=== PATIENT | male | born 1960 | race Caucasian/White ===

== ENCOUNTER → 2016-09-05 | Outpatient (CLI) | payer OTHER, BC ==
[~2016-09-05] MED LIST: ALBINS/ INH; ALBU18002 INH; ALBU1NEB10 INH; ALBUAER19 INH; MOME100A INH; MOME200A INH; MOME6000 NAE; MONT1TAB3 PO; PRED-301 PO; TIOT1SPR INH
--- NOTE | 2016-09-05 13:48 | DIAGNOSTIC IMAGING REPORT ---
CHEST 2 VIEWS ROUTINE CLINICAL HISTORY: R63.4 Weight loss dyspnea COMPARISON STUDY: 02/15/2016 FINDINGS: Mild stable cardiomegaly. Chronic pleural plaques left lung base. No new or interval finding. No acute process. IMPRESSION: Chronic change. No acute process. Electronically signed by: Shane Gupta M.D. 09/05/2016 1:47 PM Dictated Date/Time: 09/05/2016 1:47 PM
[2016-09-05 14:09] LABS: BASO % 0.4 %; BASO ABS # 0.03 K/uL (0-0.2); COMPLETE YES; EOS % 3.3 %; HEMATOCRIT 44.9 % (42-52); IG% 0.2 %; LYMPH % 18.9 %; MEAN CELL VOLUME 94.7 fL (80-100); MEAN CORPUSCULAR HEMOGLOBIN 31.2 pg (25-34); MEAN PLATELET VOLUME 10.2 fL (7.4-10.4); MONO % 6.6 %; NEUT % 70.6 %; PLATELET COUNT 183 K/uL (130-400); RED BLOOD COUNT 4.74 M/uL (4.7-6.1); WHITE BLOOD COUNT 8.46 K/uL (4.8-10.8)
[2016-09-05 14:27] LABS: ALT/SGPT 56 U/L (12-78); AST/SGOT 25 U/L (15-37); BLOOD UREA NITROGEN 15 mg/dl (7-18); BUN/CREATININE RATIO 14.7 (10-20); CALCIUM 9.2 mg/dl (8.5-10.1); CARBON DIOXIDE 30 mmol/L (21-32); CHLORIDE 106 mmol/L (98-107); GLUCOSE 112 mg/dl (70-99); POTASSIUM 3.6 mmol/L (3.5-5.1); SODIUM 142 mmol/L (136-145)
[2016-09-05 14:38] LABS: ALB/GLOB RATIO 0.9 (0.9-2); ALKALINE PHOSPHATASE 69 U/L (45-117)
== END | disposition home or self-care (01) ==
LOC: C.RAD 12:44
PROVIDERS: ATTEND Physician Assistant
DX: R63.4 Abnormal weight loss (principal); R06.00 Dyspnea, unspecified

== ENCOUNTER → 2017-02-10 | Day surgery (SDC) | payer OTHER, BC ==
[~2017-02-10] VITALS: Ht 193 cm; Wt 115.5 kg
[~2017-02-10] MED LIST changes: -ALBU1NEB10 INH; -ALBUAER19 INH; +LIDOCAINE HCL 2% 2 ML VIAL (20MG/ML) ONE; +MIDAZOLAM HCL 1 MG/ML 2ML VIAL ONE; -MOME100A INH; +PROPOFOL IV EMULSION 10 MG/ML 20 ML VIAL IV ONE
[2017-02-10 14:53] VITALS: Ht 193 cm; Wt 115.5 kg
--- NOTE | 2017-02-10 14:54 | Endo History and Physical ---
History & Physical Date of Service: Feb 10, 2017. Chief Complaint: Screening Referring Physician: Megan Arroyo History of Present Illness 56 yo CM who presents for screening colonoscopy. Past Surgical History Hx Cardiac Surgery: No Hx Internal Defibrillator: No Hx Pacemaker: No Hx Abdominal Surgery: No Hx of Implantable Prosthesis: No Hx Post-Op Nausea and Vomiting: No Hx Cancer Surgery: No Hx Thoracic Surgery: Yes (BRONCHOSCOPY) Hx Orthopedic: Yes (LOW BACK SURGERY) Hx Urinary Tract Surgery: Yes (VASECTOMY) Family History None Social History Smoking Status: Never Smoker Hx Substance Use: No Hx Alcohol Use: No Allergies Coded Allergies: Azithromycin (Verified Allergy, Intermediate, DIARRHEA, 02/10/17) Ibuprofen (Verified Allergy, Intermediate, SHORT OF BREATHE, 02/10/17) Current Medications Reported Home Medications Medications Dose Route/Sig Max Daily Dose Days Date Category Dose Instructions Unable (Miscellaneous Information) . 08/19/09 Reported Zithromax (Z-Horace) (Azithromycin) Pkt 0 PO UD 08/19/09 Reported 2 TABS DAY 1, THEN 1 TAB DAILY FOR 4 DAYS Mometasone Furoate (Mometasone Furoate (Nasal)) 50 Mcg/Act Spr 1 [place] VIRI QAM 01/27/17 Reported Prednisone 5 Mg Tab 5 Mg PO QAM 01/27/17 Reported Proair Respiclick (Albuterol Sulfate) 108 Mcg/Act Aer 2 Puffs INH Q4H PRN 01/27/17 Reported Spiriva Respimat (Tiotropium [place]) 2.5 Mcg/Act Spr 2 Puffs INH QAM 01/27/17 Reported Proventil 0.083% 2.5MG/3ML (Albuterol Sulf) 2.5 Mg/3 Ml Nebu 2.5 Mg INH QID PRN 01/27/17 Reported Dulera 200/5 Mcg (Mometasone Furoate-Formoterol) 1 Aer Aer 2 Puffs INH DAILY-BID 01/27/17 Reported Singulair (Montelukast Sodium) 10 Mg Tab 10 Mg PO QAM 08/25/12 Reported Vital Signs Weight (Kilograms): 115.45 Height (Feet): 6 Height (Inches): 4 Physical Exam General Appearance: WD/WN, no apparent distress Respiratory/Chest: Auscultation: breath sounds normal Cardiovascular: Heart Auscultation: RRR Abdomen: Bowel Sounds: normal Inspection & Palpation: soft, non-distended, no tenderness, guarding & rebound Assessment and Plan Assessment: 56 yo CM who presents for screening colonoscopy. Plan: Proceed with colonoscopy.
--- NOTE | 2017-02-10 15:58 | Discharge Instructions ---
Endoscopy Patient Instructions Date / Procedure(s) Performed Feb 10, 2017. Colonoscopy Allergy Information Coded Allergies: Azithromycin (Verified Allergy, Intermediate, DIARRHEA, 02/10/17) Ibuprofen (Verified Allergy, Intermediate, SHORT OF BREATHE, 02/10/17) Discharge Date / Findings Feb 10, 2017. Colon polyps Diverticulosis Internal hemorrhoids Medication Instructions OK to resume all medications today as prescribed Reported Home Medications Medications Dose Route/Sig Max Daily Dose Days Date Category Dose Instructions Unable (Miscellaneous Information) . 08/19/09 Reported Zithromax (Z-Horace) (Azithromycin) Pkt 0 PO UD 08/19/09 Reported 2 TABS DAY 1, THEN 1 TAB DAILY FOR 4 DAYS Mometasone Furoate (Mometasone Furoate (Nasal)) 50 Mcg/Act Spr 1 [place] IVRI QAM 01/27/17 Reported Prednisone 5 Mg Tab 5 Mg PO QAM 01/27/17 Reported Proair Respiclick (Albuterol Sulfate) 108 Mcg/Act Aer 2 Puffs INH Q4H PRN 01/27/17 Reported Spiriva Respimat (Tiotropium [place]) 2.5 Mcg/Act Spr 2 Puffs INH QAM 01/27/17 Reported Proventil 0.083% 2.5MG/3ML (Albuterol Sulf) 2.5 Mg/3 Ml Nebu 2.5 Mg INH QID PRN 01/27/17 Reported Dulera 200/5 Mcg (Mometasone Furoate-Formoterol) 1 Aer Aer 2 Puffs INH DAILY-BID 01/27/17 Reported Singulair (Montelukast Sodium) 10 Mg Tab 10 Mg PO QAM 08/25/12 Reported Provider Instructions Activity Restrictions - No exercising or heavy lifting for 24 hours. - Do not drink alcohol the day of the procedure. - Do not drive a car or operate machinery until the day after the procedure. - Do not make any important decisions or sign important papers in 24 hours after the procedure. Following Day: - Return to full activity which may include returning to work/school. Diet Start your diet with liquids and light foods (jello, soup, juice, toast). Then eat your usual diet if not nauseated. Treatment For Common After Affects For mild abdominal pain, bloating, or excessive gas: - Rest - Eat lightly - Lie on right side Follow-Up Information Follow-up with DR. NORWOOD as scheduled Anesthesia Information What You Should Know You have had a procedure that required some medicine to reduce anxiety and discomfort. This treatment is called moderate sedation. After receiving the treatment, you may be sleepy, but you will be able to breathe on your own. The effects of the treatment may last for several hours. Follow these instructions along with Activity/Diet recommendations noted above: * Do NOT do anything where dizziness or clumsiness would be dangerous. * Rest quietly at home today, then you can be up and about tomorrow. * Have a responsible person stay with you the rest of today. * You may have had an I.V. today. If so, you may take the dressing off later today. Recommendations Call your doctor if: * Trouble breathing * Continuous vomiting for more than 24 hours * Temperature above 101 degrees * Severe abdominal pain or bloating * Pain not relieved by pain medicine ordered * There is increased drainage or redness from any incision * A large amount of rectal bleeding greater than 2-3 tablespoons. (If you had a polyp/s removed or have hemorrhoids, a small amount of blood - from the rectum is to be expected.) * You have any unanswered questions or concerns. IN THE EVENT OF A SERIOUS EMERGENCY, GO TO THE NEAREST EMERGENCY ROOM Your discharge instructions were prepared by provider Zenon Lopez. Patient Instructions Signature Page Beto Murphy Patient (or Guardian) Signature/Date: I have read and understand the instructions given to me by my caregivers. Caregiver/RN/Doctor Signature/Date: The above-named patient and/or guardian has received patient instructions on this date. + Original Patient Signature Page (only) stays with chart. Please make copy for patient.
--- NOTE | 2017-02-10 16:23 | Anesthesiology Progress Note ---
Anesthesia Post Op Note Date & Time Feb 10, 2017 at 16:23 Vital Signs Pain Intensity: 0 Vital Signs Past 12 Hours Date Time Temp Pulse Resp B/P (MAP) Pulse Ox O2 Delivery O2 Flow Rate FiO2 02/10/17 16:14 69 18 122/92 (102) 98 Room Air 02/10/17 15:59 70 18 103/70 (81) 98 Room Air 02/10/17 14:58 36.4 64 18 131/62 (85) 96 Room Air Notes Mental Status: alert / awake / arousable, participated in evaluation Pt Amnestic to Procedure: Yes Nausea / Vomiting: adequately controlled Pain: adequately controlled Airway Patency, RR, SpO2: stable & adequate BP & HR: stable & adequate Hydration State: stable & adequate Anesthetic Complications: no major complications apparent
[2017-02-10 16:29] VITALS: BP 118/69; PULSE 69; O2SAT 98
--- NOTE | 2017-02-10 20:25 | GI REPORT ---
Procedure Date: 02/10/2017 3:17 PM Procedure: Colonoscopy Indications: Screening for colorectal malignant neoplasm Medicines: Monitored Anesthesia Care Complications: No immediate complications. Estimated Blood Loss: Estimated blood loss: none. Procedure: Pre-Anesthesia Assessment: - Prior to the procedure, a History and Physical was performed, and patient medications and allergies were reviewed. The patient's tolerance of previous anesthesia was also reviewed. The risks and benefits of the procedure and the sedation options and risks were discussed with the patient. All questions were answered, and informed consent was obtained. Prior Anticoagulants: The patient has taken no previous anticoagulant or antiplatelet agents. ASA Grade Assessment: III - A patient with severe systemic disease. After reviewing the risks and benefits, the patient was deemed in satisfactory condition to undergo the procedure. After I obtained informed consent, the scope was passed under direct vision. Throughout the procedure, the patient's blood pressure, pulse, and oxygen saturations were monitored continuously. The scope was introduced through the anus and advanced to the cecum, identified by appendiceal orifice and ileocecal valve. The colonoscopy was performed without difficulty. The patient tolerated the procedure well. The quality of the bowel preparation was good. The ileocecal valve, appendiceal orifice, and rectum were photographed. Findings: Two sessile polyps were found in the transverse colon. The polyps were 5 to 7 mm in size. These polyps were removed with a hot snare. Resection and retrieval were complete. Multiple small-mouthed diverticula were found in the sigmoid colon. Non-bleeding internal hemorrhoids were found during retroflexion. The hemorrhoids were small. Impression: - Two 5 to 7 mm polyps in the transverse colon, removed with a hot snare. Resected and retrieved. - Diverticulosis in the sigmoid colon. - Non-bleeding internal hemorrhoids. Recommendation: - Resume previous diet. - Continue present medications. - Repeat colonoscopy for surveillance based on pathology results. - Return to primary care physician as previously scheduled. Zenno Lopez, DO 02/10/2017 3:57:11 PM This report has been signed electronically. Note Initiated On: 02/10/2017 3:17 PM I attest to the content of the Intraoperative Record and orders documented therein, exceptions below
== END | disposition home or self-care (01) ==
LOC: C.GI 13:35
PROVIDERS: ATTEND Internal Medicine
DX: Z12.11 Encounter for screening for malignant neoplasm of colon (principal); D12.3 Benign neoplasm of transverse colon; K57.30 Diverticulosis of large intestine without perforation or abscess without bleeding; K64.8 Other hemorrhoids; J44.9 Chronic obstructive pulmonary disease, unspecified; M19.90 Unspecified osteoarthritis, unspecified site; F17.220 Nicotine dependence, chewing tobacco, uncomplicated; Z98.52 Vasectomy status; Z88.1 Allergy status to other antibiotic agents

== ENCOUNTER → 2017-05-19 | Outpatient (CLI) | payer OTHER, BC ==
[~2017-05-19] MED LIST changes: -LIDOCAINE HCL 2% 2 ML VIAL (20MG/ML) ONE; -MIDAZOLAM HCL 1 MG/ML 2ML VIAL ONE; -PROPOFOL IV EMULSION 10 MG/ML 20 ML VIAL IV ONE
[2017-05-19 13:21] LABS: BASO % 0.5 %; BASO ABS # 0.04 K/uL (0-0.2); EOS % 5.7 %; EOS ABS # 0.44 K/uL (0-0.5); HEMATOCRIT 45.5 % (42-52); HEMOGLOBIN 15.3 g/dL (14.0-18.0); IG# 0.02 K/uL (0.00-0.02); LYMPH % 27.2 %; LYMPH ABS # 2.12 K/uL (1.2-3.4); MEAN CELL VOLUME 93.8 fL (80-100); MEAN CORPUSCULAR HEMOGLOBIN 31.5 pg (25-34); MEAN CORPUSCULAR HGB CONC 33.6 g/dl (32-36); MEAN PLATELET VOLUME 10.7 fL (7.4-10.4); MONO % 8.6 %; MONO ABS # 0.67 K/uL (0.11-0.59); NEUT % 57.7 %; NEUT ABS # 4.49 K/uL (1.4-6.5); PLATELET COUNT 188 K/uL (130-400); RED CELL DISTRIBUTION WIDTH CV 12.7 % (11.5-14.5); RED CELL DISTRIBUTION WIDTH SD 43.4 fL (36.4-46.3); WHITE BLOOD COUNT 7.78 K/uL (4.8-10.8)
[2017-05-19 13:43] LABS: ALBUMIN 3.5 gm/dl (3.4-5.0); ALT/SGPT 52 U/L (12-78); BLOOD UREA NITROGEN 13 mg/dl (7-18); CALCIUM 9.5 mg/dl (8.5-10.1); CARBON DIOXIDE 28 mmol/L (21-32); CREATININE 0.87 mg/dl (0.60-1.40); GLUCOSE 93 mg/dl (70-99); POTASSIUM 4.3 mmol/L (3.5-5.1); SODIUM 138 mmol/L (136-145)
[2017-05-19 14:10] LABS: ALKALINE PHOSPHATASE 65 U/L (45-117); AST/SGOT 27 U/L (15-37); TOTAL PROTEIN 7.5 gm/dl (6.4-8.2)
== END | disposition home or self-care (01) ==
LOC: C.LABBFT 06:58
PROVIDERS: ATTEND Nurse Practitioner
DX: R05 Cough (principal); R64 Cachexia; Z12.5 Encounter for screening for malignant neoplasm of prostate

== ENCOUNTER → 2017-05-27 | Outpatient (CLI) | payer OTHER, BC ==
[~2017-05-27] MED LIST changes: +OPTIRAY 320 IV PRN
--- NOTE | 2017-05-27 08:33 | DIAGNOSTIC IMAGING REPORT ---
CT OF THE CHEST WITH IV CONTRAST CLINICAL HISTORY: J44.9 Chronic obstructive pulmonary [id number] cough PRIOR ABNORMAL CHEST CT. COMPARISON STUDY: 02/27/2015 TECHNIQUE: Following the IV administration of 93 mL of Optiray-320, CT of the thorax was performed from the thoracic inlet to the lung bases. Images are reviewed in the axial, sagittal, and coronal planes. IV contrast was administered without complication. A dose lowering technique was utilized adhering to the principles of ALARA. CT DOSE: 825.23 mGy.cm FINDINGS: Thyroid: There are several tiny right lobe thyroid nodules, none of which exceed 4 mm in diameter. Thoracic aorta: The thoracic aorta is normal in course and caliber, noting standard 3-vessel arch anatomy. No aneurysm or dissection is seen. Pulmonary vasculature: The pulmonary trunk is normal in caliber. There are no central filling defects identified to suggest pulmonary embolus. Note that this examination was not protocoled for the evaluation of pulmonary emboli. HEART: There are minimal coronary artery calcifications. The heart is the upper limits of normal in size. Lungs and pleural spaces: There are left-sided pleural calcifications. No pleural effusions are visualized. There are linear opacities within the left lower lobe most consistent with atelectasis/scarring. There is no focal pulmonary consolidation. There is a 4 mm right upper lobe perifissural nodule, unchanged from the preceding study. No new or enlarging pulmonary nodules are visualized. Mediastinum: There is no mediastinal lymphadenopathy. Jennifer: There is no evidence of pathologic hilar adenopathy Axilla: Clear. Upper abdomen: There is mild hepatic steatosis. There is an upper pole left renal cyst. Skeletal structures: There are no lytic or blastic osseous lesions. IMPRESSION: 1. No acute intrathoracic findings 2. Stable left pleural calcifications 3. Stable left lower lobe atelectasis/scarring 4. Stable 4 mm perifissural right upper lobe pulmonary nodule Electronically signed by: Luc Aparicio M.D. 05/27/2017 8:32 AM Dictated Date/Time: 05/27/2017 8:25 AM
== END | disposition home or self-care (01) ==
LOC: C.CTS 08:04
PROVIDERS: ATTEND Nurse Practitioner
DX: J61 Pneumoconiosis due to asbestos and other mineral fibers (principal); J44.9 Chronic obstructive pulmonary disease, unspecified; R05 Cough

== ENCOUNTER → 2017-06-22 | Outpatient (CLI) | payer OTHER, BC ==
[~2017-06-22] MED LIST changes: +GADAVIST IV PRN; -OPTIRAY 320 IV PRN
--- NOTE | 2017-06-22 18:17 | DIAGNOSTIC IMAGING REPORT ---
THORACIC SPINE COMBO CLINICAL HISTORY: 57 years-old Male presenting with PAIN IN THORACIC SPINE, SPONDILOSIS. TECHNIQUE: Multisequence, multiplanar MR imaging of the thoracic spine was performed before and after the administration of intravenous contrast. IV contrast: 11 mL of Gadavist. COMPARISON: CT chest from 05/27/2017. FINDINGS: Localizer images: Unremarkable. Normal thoracic kyphosis. Slight dextrocurvature of the thoracic spine. Fat-containing T1 hyperintense lesions in several vertebral bodies consistent with benign hemangiomas. A T1 hyperintense, mildly T2 hyperintense, mildly enhancing lesion in the T4 vertebral body may represent a fat poor hemangioma. Vertebral bodies maintain normal height and alignment. Mild intervertebral disc desiccation noted at T6-7. Small disc osteophyte complex at T8-9 with minimal effacement of the anterior thecal sac. No significant neural foraminal narrowing. The thoracic spinal cord is normal in morphology and signal intensity. Paraspinal soft tissues within normal limits. No abnormal enhancement. IMPRESSION: 1. Dextroscoliotic curvature with mild degenerative change. No significant spinal canal or neural foraminal narrowing. 2. In the setting of an absence of a history of malignancy, the slightly indeterminate lesion at T4 most likely represents a fat poor hemangioma. Electronically signed by: Santiago Aleman M.D. 06/22/2017 6:16 PM Dictated Date/Time: 06/22/2017 6:09 PM
== END | disposition home or self-care (01) ==
LOC: C.MRI 17:09
PROVIDERS: ATTEND Nurse Practitioner
DX: M47.814 Spondylosis without myelopathy or radiculopathy, thoracic region (principal); M54.6 Pain in thoracic spine

== ENCOUNTER → 2017-07-06 | Outpatient (CLI) | payer OTHER, BC ==
[~2017-07-06] MED LIST changes: -GADAVIST IV PRN
--- NOTE | 2017-07-06 10:47 | DIAGNOSTIC IMAGING REPORT ---
CHEST 2 VIEWS ROUTINE CLINICAL HISTORY: 57 years-old Male presenting with subcentimeter right upper lobe nodule, calcified left pleural plaque, preoperative assessment. TECHNIQUE: PA and lateral views of the chest were obtained. COMPARISON: 09/05/2016. FINDINGS: Atherosclerosis of the aortic arch. Cardiac silhouette normal in size. Lungs and pleural spaces clear. Degenerative changes of the thoracic spine. Upper abdomen normal. IMPRESSION: 1. No acute cardiopulmonary disease. Electronically signed by: Santiago Aleman M.D. 07/06/2017 10:45 AM Dictated Date/Time: 07/06/2017 10:44 AM
[2017-07-06 12:19] LABS: HEMATOCRIT 43.5 % (42-52); HEMOGLOBIN 14.9 g/dL (14.0-18.0); MEAN CELL VOLUME 91.2 fL (80-100); MEAN CORPUSCULAR HEMOGLOBIN 31.2 pg (25-34); MEAN CORPUSCULAR HGB CONC 34.3 g/dl (32-36); PLATELET COUNT 185 K/uL (130-400); RED CELL DISTRIBUTION WIDTH CV 12.4 % (11.5-14.5); RED CELL DISTRIBUTION WIDTH SD 41.6 fL (36.4-46.3); WHITE BLOOD COUNT 7.75 K/uL (4.8-10.8)
[2017-07-06 12:31] LABS: PTT PATIENT 26.6 SECONDS (21.0-31.0)
== END | disposition home or self-care (01) ==
LOC: C.RAD 10:04
PROVIDERS: ATTEND Podiatrist Foot & Ankle Surgery
DX: Z01.818 Encounter for other preprocedural examination (principal); Z01.810 Encounter for preprocedural cardiovascular examination; Z01.812 Encounter for preprocedural laboratory examination

== ENCOUNTER → 2017-07-20 | Day surgery (SDC) | payer OTHER, BC ==
[2017-07-14 08:52] VITALS: Ht 193 cm; Wt 115.5 kg
[~2017-07-20] VITALS: Ht 193 cm; Wt 115.5 kg
[~2017-07-20] MED LIST changes: +ALBINS INH; +ATROPINE SULFATE 0.1 MG/ML 5ML SYR IV PRN; +BUPIVACAINE 0.5 % 5 MG/1 ML MPF 30ML VIAL ONE; +CRTC; +ELAS-1213 EXT; +EpHEDrine SULFATE INJ 50 MG/ML AMP IV PRN; +FENTANYL CITRATE INJ 50 MCG/1 ML 2 ML VIAL IV PRN; +FENTANYL CITRATE INJ 50 MCG/1 ML 2 ML VIAL ONE; +FLUMAZENIL 0.1 MG/1 ML 10 ML VIAL IV PRN; +HYDR-5688 PO; +HYDROmorphone INJ 2 MG/ML SYR/VIAL IV PRN; +LABETALOL HCL IV 5 MG/ML 20ML IV PRN; +LACTATED RINGER'S 1000ML 1,000 ML IV SCH; +LIDOCAINE HCL 2% 2 ML VIAL (20MG/ML) ONE; +MEPERIDINE HCL 25 MG/ML CARP IV PRN; +MIDAZOLAM HCL 1 MG/ML 2ML VIAL ONE; -MOME200A INH; +NALOXONE HCL 0.4 MG/1 ML VIAL/CARP IV PRN; +ONDANSETRON INJ 2 MG/ML 2 ML VIAL IV PRN; +ONDANSETRON INJ 2 MG/ML 2 ML VIAL ONE; +PHENYLEPHRINE 100MCG/ML 5ML SYR IV PRN; +PROPOFOL IV EMULSION 10 MG/ML 20 ML VIAL IV ONE; +SYMIN160 INH; +VNTHFA/IN INH
--- NOTE | 2017-07-20 06:58 | History & Physical Bridge - SC ---
H&P Re-Evaluation Bridge Note: I have examined the patient, reviewed the History & Physical and in the interval since the performance of the History & Physical I have noted the following changes of clinical significance: No changes noted
[2017-07-20] MEDS: CEFAZOLIN 2000MG IV PUSH 15 ML IV SCH ×2 (07:01→07:08)
--- NOTE | 2017-07-20 07:04 | Discharge Instructions-SurgCtr ---
Discharge Instructions Date of Service Jul 20, 2017. Visit Reason for Visit: Left Hallux Valgus, Pain Discharge Discharge Diagnosis / Problem: Left bunionectomy Discharge Goals Goal(s): Decrease discomfort, Improve function Activity Recommendations Activity Limitations: as noted below Exercise/Sports Limitations: none, rest today Shower/Bathe: keep incision dry Weightbearing Status: Left non-weightbearing Limit weight bearing. May do heel weight bearing on left as tolerated. Use crutches or walker with assistance for ambulation. Anesthesia . Post Anesthesia Instructions: If you have had General Anesthesia or IV Sedation: * Do not drive today. * Resume driving when surgeon permits. * Do not make important decisions or sign legal documents today. * Call surgeon for: 1. Temperature elevations greater than 101 degrees F. 2. Uncontrollable pain. 3. Excessive bleeding. 4. Persistent nausea and vomiting. 5. Medication intolerance (nausea, vomiting or rash). * For nausea and vomiting use only clear liquids such as: tea, soda, bouillon until nausea subsides, then gradually increase diet as tolerated. * If you have any concerns or questions, call your surgeon's office. If physician is unavailable and it is an emergency, call 911 or go to the nearest emergency room. . Instructions / Follow-Up Instructions / Follow-Up Follow-up on 06/22/17, in the office with Dr. Carroll. Call if any problems arise. Diet Recommendations Home Diet: resume previous diet Procedures Procedures Performed: Left Vance bunionectomy Pending Studies Studies pending at discharge: no Medical Emergencies . Who to Call and When: Medical Emergencies: If at any time you feel your situation is an emergency, please call 911 immediately. . Non-Emergent Contact Non-Emergency issues call your: Primary Care Provider, Specialist Call Non-Emergent contact if: you have a fever, your pain is not controlled, your pain is worsening, wound has increased drainage, wound has increased redness, you have any medication questions . . "Provider Documentation" section prepared by Keerthi Carroll. . [place] Drug Monitoring Program Search Results: no issues identified
--- NOTE | 2017-07-20 07:24 | Anesthesiology Progress Note ---
Anesthesia Progress Note Date of Service Jul 20, 2017. Progress Notes The patient is a 57 y/o male scheduled to undergo a L foot bunion surgery. The patient was consented for general anesthesia. On the way back to the OR the patient became very nauseas. He admitted to using chewing tobacco one hour prior to arrival at the surgery center. Due to the increased risk of aspiration and the inability of the surgeon to wait several hours for the patient better clear his stomach the procedure was cancelled for today and will need to be rescheduled. I spoke to both Dr. Carroll and the patient and they both agreed with the plan. The patient did receive a dose of midazolam and will be monitored appropriately until discharge.
--- NOTE | 2017-07-20 07:35 | Anesthesiology Progress Note ---
Anesthesia Post Op Note Date & Time Jul 20, 2017 at 07:34 Vital Signs Pain Intensity: 0 Vital Signs Past 12 Hours Date Time Temp Pulse Resp B/P (MAP) Pulse Ox O2 Delivery O2 Flow Rate FiO2 07/20/17 06:33 36.5 86 16 129/87 (101) 96 Room Air Notes Mental Status: alert / awake / arousable, participated in evaluation Pt Amnestic to Procedure: Yes Nausea / Vomiting: adequately controlled Pain: adequately controlled Airway Patency, RR, SpO2: stable & adequate BP & HR: stable & adequate Hydration State: stable & adequate Anesthetic Complications: no major complications apparent The patient's surgery was cancelled due to NPO violation, nausea, and aspiration concern. The patient did receive midazolam. He is awake and comfortable. All vitals are stable.
[2017-07-20 07:39] VITALS: BP 135/88; PULSE 81; TEMP 36.7; O2SAT 96
== END | disposition home or self-care (01) ==
LOC: X.SURG 06:15
PROVIDERS: ATTEND Podiatrist Foot & Ankle Surgery
DX: M21.612 Bunion of left foot (principal); Z53.09 Procedure and treatment not carried out because of other contraindication; J44.9 Chronic obstructive pulmonary disease, unspecified; F17.220 Nicotine dependence, chewing tobacco, uncomplicated; M19.90 Unspecified osteoarthritis, unspecified site; E66.3 Overweight; Z68.31 Body mass index [BMI] 31.0-31.9, adult; Z92.241 Personal history of systemic steroid therapy

== ENCOUNTER → 2017-07-26 | Day surgery (SDC) | payer OTHER, BC ==
[2017-07-23 09:20] VITALS: Ht 193 cm; Wt 115.5 kg
[~2017-07-26] VITALS: Ht 193 cm; Wt 115.5 kg
[~2017-07-26] MED LIST changes: -ALBINS/ INH; -ALBU18002 INH; +CEFAZOLIN 2000MG IV PUSH 15 ML IV SCH; +DEXAMETHASONE SOD INJ 4 MG/ML VIAL ONE; -ELAS-1213 EXT; -FLUMAZENIL 0.1 MG/1 ML 10 ML VIAL IV PRN; -HYDROmorphone INJ 2 MG/ML SYR/VIAL IV PRN; -LABETALOL HCL IV 5 MG/ML 20ML IV PRN; -MEPERIDINE HCL 25 MG/ML CARP IV PRN; +METOCLOPRAMIDE HCL INJ 5 MG/ML 2 ML VIAL IV PRN; -MONT1TAB3 PO; -NALOXONE HCL 0.4 MG/1 ML VIAL/CARP IV PRN; +OXYCODONE/ACETAMINOPHEN 5-325 TAB PO PRN; -PHENYLEPHRINE 100MCG/ML 5ML SYR IV PRN; +SODIUM CHLORIDE 0.9% 1000ML 1,000 ML IV SCH
--- NOTE | 2017-07-26 07:52 | Discharge Instructions-SurgCtr ---
Discharge Instructions Date of Service Jul 26, 2017. Visit Reason for Visit: Left Hallux Valgus, Pain Discharge Discharge Diagnosis / Problem: Prabhakar bunionectomy left foot Discharge Goals Goal(s): Decrease discomfort, Improve function Activity Recommendations Activity Limitations: per Instructions/Follow-up section Exercise/Sports Limitations: rest today Shower/Bathe: keep incision dry Weightbearing Status: Left partial Partial weight bearing to LEFT heel with assistance of crutches or walker. Anesthesia . Post Anesthesia Instructions: If you have had General Anesthesia or IV Sedation: * Do not drive today. * Resume driving when surgeon permits. * Do not make important decisions or sign legal documents today. * Call surgeon for: 1. Temperature elevations greater than 101 degrees F. 2. Uncontrollable pain. 3. Excessive bleeding. 4. Persistent nausea and vomiting. 5. Medication intolerance (nausea, vomiting or rash). * For nausea and vomiting use only clear liquids such as: tea, soda, bouillon until nausea subsides, then gradually increase diet as tolerated. * If you have any concerns or questions, call your surgeon's office. If physician is unavailable and it is an emergency, call 911 or go to the nearest emergency room. . Instructions / Follow-Up Instructions / Follow-Up Please tow picker walking boot from office at earliest convenience. Continue use of crutches or walker with assistance with ambulation. Keep dressing clean, dry and intact. Diet Recommendations Home Diet: resume previous diet Procedures Procedures Performed: Left prabhakar bunionectomy Pending Studies Studies pending at discharge: yes List of pending studies: X-rays 3 views left foot Medical Emergencies . Who to Call and When: Medical Emergencies: If at any time you feel your situation is an emergency, please call 911 immediately. . Non-Emergent Contact Non-Emergency issues call your: Primary Care Provider, Specialist Call Non-Emergent contact if: you have a fever, your pain is not controlled, your pain is worsening, wound has increased drainage, wound has increased redness, wound has increased pain, you have any medication questions . . "Provider Documentation" section prepared by Keerthi Carroll. . [place] Drug Monitoring Program Search Results: no issues identified
--- NOTE | 2017-07-26 12:07 | [facility] Post Operative Brief Note ---
Immediate Operative Summary Operative Date Jul 26, 2017. Pre-Operative Diagnosis Left foot hallux valgus Post-Operative Diagnosis Same as preop Procedure(s) Performed Left Foot Surgical Correction Bunion Deformity By Removing The Bump And Realigning The Joint With Fixation via Vance bunionectomy Surgeon Dr. Carroll Meter Installer And Remover Surgeon(s) None Estimated Blood Loss 5 mL Findings Consistent with Post-Op Diagnosis Specimens None Drains None Anesthesia Type General Complication(s) none K-wire broke within 1st metatarsal bone and was left as this was buried and unable to be removed. Disposition Accompanied Pt To Recovery: no
--- NOTE | 2017-07-26 12:33 | DIAGNOSTIC IMAGING REPORT ---
SURGESTEFANIR FOOT, 2 VIEWS HISTORY: 57 years-old Male LEFT FOOT SURGICAL CORRECTION BUNION DEFORMITY chronic left foot pain COMPARISON: None available TECHNIQUE: 2 spot fluoroscopic images of the left toes were obtained utilizing 9 seconds fluoroscopy time. FINDINGS: Postoperative changes from osteotomy involving the medial aspect of the first metatarsal head. There is a metallic pin with single cannulated screw involving the first metatarsal head which appear intact. Mild hallux valgus deformity with expected postsurgical soft tissue swelling. IMPRESSION: Postoperative changes of the first metatarsal as above. Please see operative report for further details. The above report was generated using voice recognition software. It may contain grammatical, syntax or spelling errors. Electronically signed by: Jacobo Hernandez M.D. 07/26/2017 12:31 PM Dictated Date/Time: 07/26/2017 12:29 PM
[2017-07-26 13:10] VITALS: TEMP 36.4
[2017-07-26 13:35] VITALS: BP 139/85; PULSE 68; O2SAT 98
--- NOTE | 2017-07-26 13:35 | Anesthesia Progress Nt - [facility] ---
Anesthesia Post Op Note Date & Time Jul 26, 2017 at 13:34 Vital Signs Pain Intensity: 0 Vital Signs Past 12 Hours Date Time Temp Pulse Resp B/P (MAP) Pulse Ox O2 Delivery O2 Flow Rate FiO2 07/26/17 13:10 36.4 64 16 146/79 (101) 97 07/26/17 13:07 65 100 07/26/17 13:07 65 07/26/17 13:06 115/75 07/26/17 13:02 67 15 100 07/26/17 13:02 65 15 07/26/17 13:01 126/75 07/26/17 12:57 66 17 07/26/17 12:57 64 17 100 07/26/17 12:56 120/75 07/26/17 12:55 63 12 07/26/17 12:55 63 12 100 07/26/17 12:54 36.6 66 16 120/75 100 Room Air 07/26/17 12:51 122/79 07/26/17 12:50 67 14 07/26/17 12:50 70 14 100 07/26/17 12:46 127/80 07/26/17 12:45 67 17 07/26/17 12:45 68 17 100 07/26/17 12:41 128/78 07/26/17 12:40 63 13 100 07/26/17 12:40 63 13 07/26/17 12:36 128/80 07/26/17 12:35 65 13 07/26/17 12:35 66 13 100 07/26/17 12:31 124/80 07/26/17 12:30 64 14 07/26/17 12:30 64 14 100 07/26/17 12:26 121/78 07/26/17 12:25 63 16 100 07/26/17 12:25 63 16 07/26/17 12:21 121/74 07/26/17 12:20 67 100 07/26/17 12:20 67 07/26/17 12:16 118/72 07/26/17 12:15 72 13 07/26/17 12:15 72 13 100 07/26/17 12:11 108/73 07/26/17 12:10 36.6 78 16 108/73 97 Mask 6 07/26/17 12:10 70 98 07/26/17 12:10 70 07/26/17 10:22 36.4 77 20 162/96 (381) 97 Room Air Notes Mental Status: alert / awake / arousable, participated in evaluation Pt Amnestic to Procedure: Yes Nausea / Vomiting: adequately controlled Pain: adequately controlled Airway Patency, RR, SpO2: stable & adequate BP & HR: stable & adequate Hydration State: stable & adequate Anesthetic Complications: no major complications apparent
--- NOTE | 2017-07-26 18:18 | [facility] Operative Report ---
Operative Report Operative Date Jul 26, 2017. Pre-Operative Diagnosis Left foot hallux valgus Post-Operative Diagnosis Same as preop Procedure(s) Performed Left Foot Surgical Correction Bunion Deformity By Removing The Bump And Realigning The Joint With Fixation via Vance bunionectomy Surgeon Dr. Carroll [employer] Manager Surgeon(s) None Estimated Blood Loss 5 mL Findings Minimal gouty tophi were demonstrated about the medial eminence. Specimens None Drains None Anesthesia Type General Complication(s) none K-wire broke within 1st metatarsal bone and was left as this was buried and unable to be removed. Disposition no Indications This is a pleasant 57 year old male with the chief complaint of painful bunion to his left foot. Physical evaluation demonstrated moderate Hhllux valgus deformity of the foot LEFT with a bony prominence noted on the medial aspect of the first metatarsal head. Pain was present to palpation of the prominent medial eminence. Range of motion of the 1st MTP joint was right normal. Moderate pain to palpation of dorsal 1st MTP joint. No pain to palpation plantar sesamoids. Negative central grind. Radiographs were obtained and demonstrated mild hallux valgus deformity with increased IM 1-2 angle. Patient has attempted all conservative treatments, consisting of wider shoes, bunion sleeves and offloading, modification of activity, all of which have failed to alleviate his symptoms. The perioperative indications, planned procedure, possible benefits, risks, complications, and anticipated healing time and management were discussed in detail with the patient. He understands and elects to proceed with surgery at this time. All consents have been signed. No guarantees were made. All questions have been answered to the patient's satisfaction. Medical clearance has been obtained by the patients primary care physician. Description of Procedure After having received preoperative antibiotics a pneumatic stocking was placed on the opposite extremity. The patient was taken to the operating room and placed on the table in a supine position where they underwent general sedation and local anesthetic block in a typical Syed block fashion. The left foot and ankle were prepped and draped in the usual sterile manner. A standard dorsal medial incision was made first sharply and then bluntly. All bleeders were cauterized as appropriate. Next, a linear capsulotomy was performed exposing the medial metatarsal head. The medial eminence was then resected with the sagittal saw while maintaining the sagittal groove plantarly. The medial eminence was found to demonstrate minimal bright white gouty tophi. A standard [employer] osteotomy cut was made from medial to lateral, transposing the metatarsal head fragment laterally. After appropriate reduction of the intermetatarsal angle, a 0.045 K-wire was placed for temporary fixation of the capital fragment. At this time, the initial 0.045 K-wire used for temporary fixation broke off within the first metatarsal. This was left in place as it did not violate the joint and was unable to be removed due to its totality within the first metatarsal. A second 0.045 K-wire was then utilized for temporary fixation. A [employer] 3.0 mm cannulated headless compression screw was then placed for permanent fixation in standard AO fashion. Care was taken to ensure that the screw did not violate the joint. Fluoroscopy was used for verification of position, and good triplane position was noted. The overhanging ledge of the osteotomy site was reduced with the sagittal saw and contoured with a rongeur. A medial capsulorrhaphy was then performed. Following this, hallux was noted to sit in a rectus position with excellent range of motion and good reduction of the prior deformity. The surgical site was then irrigated with copious amounts of normal saline. The joint capsule was closed using 3-0 Vicryl with [id number] stitches and a running linear stitch. 4-0 Vicryl was then used in a running fashion to close the subcutaneous tissue. Skin closure was performed using 5-0 Monocryl in a subcuticular fashion. There was noted to be good capillary refill time in all digits following the procedure. Steri strips and a dry sterile dressing was applied. The patient tolerated the procedure and anesthesia very well and left the operating room with vital signs stable and neurovascular status grossly intact. After a period of postoperative monitoring, the patient will be discharged home per same-day criteria with instructions for post operative care. The broken k- wire was discussed with the patient's and then the patient post- operatively. This will be shown to him on his post-operative x-rays in the office. The patient will follow-up in a period of one week or less should any problems or questions arise. The prognosis for postoperative healing is very good. All emergency contact numbers have been made available to the patient should any problems or questions arise. I attest to the content of the Intraoperative Record and any orders documented therein. Any exceptions are noted below.
--- NOTE | 2017-07-28 08:33 | DIAGNOSTIC IMAGING REPORT ---
LEFT FOOT, 2 VIEWS CLINICAL HISTORY: Post op prabhakar bunionectomy COMPARISON STUDY: None. FINDINGS: 2 views of the left foot demonstrate a bunionectomy and osteotomy transfixed with a screw and pin of the first metatarsal neck. The hardware is intact. The alignment is near-anatomic. Soft tissue gas at the first MTP joint is likely due to the postoperative change. IMPRESSION: Postoperative changes at the first metatarsal. No evidence for hardware complication. Electronically signed by: Scott Churchill M.D. 07/28/2017 8:32 AM Dictated Date/Time: 07/28/2017 8:31 AM
== END | disposition home or self-care (01) ==
LOC: X.SURG 10:01
PROVIDERS: ATTEND Podiatrist Foot & Ankle Surgery
DX: M20.12 Hallux valgus (acquired), left foot (principal); J45.909 Unspecified asthma, uncomplicated; J44.9 Chronic obstructive pulmonary disease, unspecified; F17.200 Nicotine dependence, unspecified, uncomplicated; E66.3 Overweight; Z68.31 Body mass index [BMI] 31.0-31.9, adult